=== PATIENT | male | born 1970 | race Caucasian/White ===

== ENCOUNTER 2021-04-05 15:55 | Outpatient (REF) | payer OTHER, SELFPAY ==
[2021-04-07 00:46] LABS: COVID-19 RT-PCR UVMMC Result Negative (Negative)
== END 2021-04-05 15:56 | disposition home or self-care (01) ==
LOC: LBN 15:55
PROVIDERS: PCP Family Medicine; Visit Provider Physician Assistant
DX: Z20.822 Contact with and (suspected) exposure to COVID-19 (principal); J02.9 Acute pharyngitis, unspecified
CPT/HCPCS: U0003

== ENCOUNTER 2021-08-29 22:40 | Outpatient (REF) | payer OTHER, SELFPAY ==
[2021-08-29 20:54] LABS: Hemoglobin A1C 7.8 % (<5.7)
[2021-08-29 21:32] LABS: Calculated LDL 161 mg/dL (<100); Cholesterol 267 mg/dL (<200); HDL Cholesterol 51 mg/dL (40-60); Triglyceride 277 mg/dL (<150)
[2021-09-01 10:01] LABS: Hepatitis C Ab w Rflx HCV PCR Negative (Negative)
== END 2021-08-29 22:41 | disposition home or self-care (01) ==
LOC: NCHCN 22:40
PROVIDERS: PCP Family Medicine; Visit Provider Family Medicine
DX: Z00.00 Encounter for general adult medical examination without abnormal findings (principal); Z11.59 Encounter for screening for other viral diseases
CPT/HCPCS: 80061; 86803; 83036

== ENCOUNTER 2021-11-10 18:30 | Outpatient (REF) | payer OTHER, SELFPAY ==
[2021-11-10 20:02] LABS: Calculated LDL 121 mg/dL (<100); Cholesterol 204 mg/dL (<200); HDL Cholesterol 44 mg/dL (40-60); Triglyceride 198 mg/dL (<150)
[2021-11-10 20:31] LABS: FREE T4 1.09 ng/dL (0.76-1.46)
== END 2021-11-10 18:31 | disposition home or self-care (01) ==
LOC: NCHCN 18:30
PROVIDERS: PCP Family Medicine; Visit Provider Family Medicine
DX: E78.5 Hyperlipidemia, unspecified (principal); R53.83 Other fatigue
CPT/HCPCS: 80061; 82565; 84439; 84443

== ENCOUNTER 2022-05-13 15:44 | Outpatient (REF) | payer OTHER, SELFPAY ==
[2022-05-13 19:36] LABS: HCT 38.9 % (40.0-50.0); HGB 13.4 g/dL (13.5-17.5)
[2022-05-13 20:14] LABS: TSH (W/Ref FT4) 2.59 uIU/mL (0.36-3.74); Vitamin B12 456 pg/mL (193-986)
== END 2022-05-13 15:45 | disposition home or self-care (01) ==
LOC: NCHCN 15:44
PROVIDERS: PCP Family Medicine; Visit Provider Family Medicine
DX: R94.6 Abnormal results of thyroid function studies (principal); F32.9 Major depressive disorder, single episode, unspecified
CPT/HCPCS: 82607; 84443; 85014; 85018

== ENCOUNTER 2022-06-10 17:25 | Outpatient (REF) | payer OTHER, SELFPAY ==
[2022-06-10 19:47] LABS: HCT 38.3 % (40.0-50.0); HGB 13.4 g/dL (13.5-17.5); MCH 31.6 pg (27.0-33.0); MCV 90 fL (80-95); MPV 11.2 fL (8.0-11.0); Platelet Count 222 10^3/uL (130-400); RBC 4.24 10^6/uL (4.36-5.78); RDW 11.8 % (11.8-14.1)
[2022-06-10 20:03] LABS: Iron 73 ug/dL (65-175); Total Iron Binding Capacity 259 ug/dL (250-450); Transferrin Sat 28 % (20-55)
[2022-06-15 12:53] LABS: IgA 297 mg/dL (85-499); Interpretation (See Note); Tissue Transglutaminase IgA <1.2 U/mL (<4.0)
== END 2022-06-10 17:26 | disposition home or self-care (01) ==
LOC: NCHCN 17:25
PROVIDERS: PCP Family Medicine; Visit Provider Family Medicine
DX: D64.9 Anemia, unspecified (principal)
CPT/HCPCS: 82784; 83516; 85027; 83540; 83550

== ENCOUNTER 2022-12-21 18:20 | Outpatient (REF) | payer OTHER, SELFPAY ==
[2022-12-21 15:00] LABS: HCT 40.5 % (40.0-50.0); MCH 31.3 pg (27.0-33.0); MCHC 34.6 % (32.0-36.0); MCV 90 fL (80-95); MPV 11.3 fL (8.0-11.0); Platelet Count 237 10^3/uL (130-400); RBC 4.48 10^6/uL (4.36-5.78); RDW 11.8 % (11.8-14.1); RDW-SD 38.7 fL
[2022-12-21 15:55] LABS: Ferritin 138 ng/mL (26-388); Folate 13.1 ng/mL (8.6-20.0)
[2022-12-21 16:05] LABS: Hemoglobin A1C 5.7 % (<5.7)
== END 2022-12-21 18:21 | disposition home or self-care (01) ==
LOC: NCHCN 18:20
PROVIDERS: PCP Family Medicine; Visit Provider Family Medicine
DX: D64.9 Anemia, unspecified (principal); R73.03 Prediabetes
CPT/HCPCS: 85027; 82728; 82746; 83036; 85045

== ENCOUNTER 2023-12-06 18:06 | Outpatient (REF) | payer OTHER, SELFPAY ==
[2023-12-06 16:01] LABS: Abs Immature Grans 0.01 10^3/uL (0.0-0.06); Absolute Basophil Count 0.05 10^3/uL (0.0-0.2); Absolute Eosinophil Count 0.11 10^3/uL (0.0-0.7); Absolute Lymphocyte Count 1.57 10^3/uL (1.2-3.4); Absolute Monocyte Count 0.39 10^3/uL (0.1-0.8); Eosinophils % 2.1; HCT 44.9 % (40.0-50.0); HGB 15.2 g/dL (13.5-17.5); Immature Grans % 0.2; MCH 30.7 pg (27.0-33.0); MCHC 33.9 % (32.0-36.0); MCV 91 fL (80-95); MPV 10.7 fL (8.0-11.0); Monocytes % 7.5; Neutrophils % 59.2; Platelet Count 247 10^3/uL (130-400); RBC 4.95 10^6/uL (4.36-5.78); RDW 11.9 % (11.8-14.1); RDW-SD 39.8 fL; WBC 5.23 10^3/uL (4.4-10.8)
[2023-12-06 16:21] LABS: Ferritin 83 ng/mL (26-388)
[2023-12-06 16:52] LABS: Iron 79 ug/dL (65-175)
[2023-12-06 17:25] LABS: Vitamin D 25 Total 32.2 ng/mL (30-100)
== END 2023-12-06 18:07 | disposition home or self-care (01) ==
LOC: NCHCN 18:06
PROVIDERS: PCP Family Medicine; Visit Provider Student in an Organized Health Care Education/Training Program
DX: Z86.2 Personal history of diseases of the blood and blood-forming organs and certain disorders involving the immune mechanism (principal); E55.9 Vitamin D deficiency, unspecified
CPT/HCPCS: 82306; 82728; 83540; 85025

== ENCOUNTER 2024-04-14 14:41 | Outpatient (REF) | payer OTHER, SELFPAY ==
[2024-04-14 15:53] LABS: Abs Immature Grans 0.01 10^3/uL (0.0-0.06); Absolute Basophil Count 0.03 10^3/uL (0.0-0.2); Absolute Eosinophil Count 0.16 10^3/uL (0.0-0.7); Absolute Lymphocyte Count 1.46 10^3/uL (1.2-3.4); Absolute Monocyte Count 0.33 10^3/uL (0.1-0.8); Absolute Neutrophil Count 2.44 10^3/uL (1.2-6.7); Basophils % 0.7 %; Eosinophils % 3.6 %; HGB 15.3 g/dL (13.5-17.5); Immature Grans % 0.2 %; MCH 31.1 pg (27.0-33.0); MCHC 34.8 % (32.0-36.0); MCV 89 fL (80-95); Monocytes % 7.4 %; Neutrophils % 55.1 %; Platelet Count 221 10^3/uL (130-400); RBC 4.92 10^6/uL (4.36-5.78); RDW 11.8 % (11.8-14.1); RDW-SD 38.4 fL; WBC 4.43 10^3/uL (4.4-10.8)
[2024-04-14 16:18] LABS: Anion Gap 4.7 mmol/L (3-11); BUN 19 mg/dL (7-18); CO2 30.3 mmol/L (21.0-32.0); CREATININE 1.1 mg/dL (0.70-1.30); Calcium 9.2 mg/dL (8.5-10.1); Chloride 105 mmol/L (98-107); Estimated GFR 79.28 (mL/min/1.73m2); FREE T4 0.98 ng/dL (0.76-1.46); Glucose 84 mg/dL (74-106); Potassium 5.1 mmol/L (3.5-5.1); Sodium 140 mmol/L (136-145); TSH 1.63 uIU/Ml (0.36-3.74)
== END 2024-04-14 14:42 | disposition home or self-care (01) ==
LOC: NCHCN 14:41
PROVIDERS: PCP Family Medicine; Visit Provider Student in an Organized Health Care Education/Training Program
DX: E55.9 Vitamin D deficiency, unspecified (principal)
CPT/HCPCS: 80048; 82306; 84439; 84443; 85025

== ENCOUNTER 2024-10-11 10:55 | Emergency (ER) | payer OTHER, SELFPAY ==
[2024-10-11 11:05] VITALS: BP 154/98; PULSE 67; RESP 98; TEMP 36.7; O2SAT 98
[2024-10-11] MEDS: Cyclobenzaprine 10 MG TAB PO (11:33)
[2024-10-11] MEDS: Lidocaine 5% Patch 1 PATCH TP (11:33)
[2024-10-11] MEDS: Acetaminophen 500 MG TAB 1000 MG PO (12:17)
--- NOTE | 2024-10-11 12:41 | ED.GENADUL_ITS ---
Discharge Plan Disposition Patient Disposition: Home Condition: Good Discharge Details Clinical Impression: Muscle spasms of neck Primary Care Provider: Andres Shore ED Provider: Tyler Caputo Home Meds and New Rx's Prescriptions: New cyclobenzaprine 10 mg tablet 10 mg PO TID Qty: 14 0RF lidocaine [Lidoderm] 5 % adhesive patch,medicated 1 patch Topical Q24H Qty: 15 0RF No Action citalopram [Celexa] 10 mg tablet 10 mg PO DAILY Discharge Instructions Instructions: Muscle Spasm ED Additional Instructions: At this time your signs and symptoms are clinically consistent with a muscular neck sprain. This can cause significant pain and take a fair bit of time to heal. Perform easy gentle regular activities at home without any significant bending or lifting. You have been given a prescription for Lidoderm patch. If your insurance does not cover this you can get [id number] Lidoderm patches at 4% which are almost just as effective. Please take the Flexeril as directed but do not take it when driving or operating any vehicles or heavy machinery, swimming, taking long baths, or operating firearms. Please use a heating pad as often as possible on your back. Perform daily gentle stretches on your back. Please continue to take the Tylenol and Motrin. You can take 1000 mg of Tylenol every 6 hours and 600 mg of ibuprofen every 6 hours. If you notice any worsening of your symptoms, or any new symptoms such as vomiting, diarrhea, fever, chills, shortness of breath, chest pain, numbness or tingling in your groin or legs, weakness in your legs, loss of control for your bowels or bladder, or fainting , please return immediately to the emergency department for reevaluation. Please follow up with your primary care provider as soon as possible for reassessment and reevaluation. As always, it was a pleasure participating in your medical care today. Referrals: Andres Shore [Primary Care Provider] - Discharge Data Discharge Date/Time-TO BE ENTERED AT DEPARTURE: 10/11/24 12:54 HPI General Date/Time Provider Initiated Documentation: 10/11/24 11:02 . HPI Narrative: This is a pleasant 54-year-old male who presents today for evaluation of neck spasm. Patient states that throughout his life he has often had notable muscle spasms in his neck, these often go away with time, they were usually pre tty manageable, however today he has had an extreme episode which is worse than its ever been before. He states that over the last day or so he is down a notable amount of shuffling. When he woke up this morning he noticed that his neck was notably stiff and tight. It then began to lock in and he has been unable to significantly move his neck to the left right forward or backwards because of the spasm. He did take some NSAID therapy without significant improvement. He denies numbness or tingling. He denies headache. He denies fever or chills. He denies any vomiting or diarrhea. No trauma. No other complaints at this time. Related Data Home Medications ?Medication ?Instructions ?Recorded ?Confirmed citalopram 10 mg tablet (Celexa) 10 mg PO DAILY 10/11/24 10/11/24 cyclobenzaprine 10 mg tablet 10 mg PO TID #14 tabs 10/11/24 lidocaine 5 % topical patch 1 patch topical Q24H #15 ea 10/11/24 (Lidoderm) Previous Rx's ?Medication ?Instructions ?Recorded cyclobenzaprine 10 mg tablet 10 mg PO TID #14 tabs 10/11/24 lidocaine 5 % topical patch 1 patch topical Q24H #15 ea 10/11/24 (Lidoderm) Allergies Allergy/AdvReac Type Severity Reaction Status Date / Time No Known Allergies Allergy Verified 10/11/24 11:09 General Stated Complaint: Nk/Back Pain KHALIF: 3 Exam Narrative Exam Narrative: 1.Const: Well-nourished, Well-developed, appearing stated age 2.Eyes: PERRL, no conjunctival injection, and symmetrical lids. 3.ENT: Atraumatic external nose and ears. Moist MM. Neck: Symmetric, trachea midline, No thyromegaly. 4.CVS: +S1/S2, Peripheral pulses 2+ and equal in all extremities. Brisk capillary refill in all extremities. 5.RESP: Unlabored respiratory effort. Clear to auscultation bilaterally. No wheezes rales or rhonchi 6.GI: Soft, Nontender/Nondistended, No hepatosplenomegaly. No guarding or rebound. 7.MSK: Normocephalic/Atraumatic, Extremities w/o deformity or ttp No cyanosis or clubbing, Normal movement of all extremities. Patient does have notable spasm over the superior trapezius muscles as well as around the splenius muscles. No midline cervical thoracic or lumbar spine tenderness, no nuchal rigidity. No nuchal pain. 8.Skin: Warm, Dry. No rashes or lesions. 9.Neuro: extract wringer II-XII grossly intact. Sensation grossly intact, no focal neurologic deficits. 10.Psych: (AAO) x3. Appropriate mood and affect Course Vital Signs Vital signs: Vital Signs Temperature 36.7 C 10/11/24 11:05 Pulse 67 10/11/24 11:05 Respiratory Rate 98 H 10/11/24 11:05 Blood Pressure 154/98 H 10/11/24 11:05 Pulse Oximetry 98 10/11/24 11:05 Temperature 36.7 C 10/11/24 11:05 Temperature Source Tympanic 10/11/24 11:05 Pulse 67 10/11/24 11:05 Respiratory Rate 98 H 10/11/24 11:05 Blood Pressure 154/98 H 10/11/24 11:05 Pulse Oximetry 98 10/11/24 11:05 Oxygen Delivery Method Room Air 10/11/24 11:05 Oxygen Flow Rate 0 10/11/24 11:05 Pain Level 10 10/11/24 11:05 Medical Decision Making This is a pleasant 54-year-old male who presents today for evaluation of neck spasm. Patient states that throughout his life he has often had notable muscle spasms in his neck, these often go away with time, they were usually pretty manageable, however today he has had an extreme episode which is worse than its ever been before. He states that over the last day or so he is down a notable amount of shuffling. When he woke up this morning he noticed that his neck was notably stiff and tight. It then began to lock in and he has been unable to significantly move his neck to the left right forward or backwards because of the spasm. He did take some NSAID therapy without significant improvement. He denies numbness or tingling. He denies headache. He denies fever or chills. He denies any vomiting or diarrhea. No trauma. No other complaints at this time. Patient does have notable spasm over the superior trapezius muscles as well as around the splenius muscles. No midline cervical thoracic or lumbar spine tenderness, no nuchal rigidity. No nuchal pain. Patient has no fever or chills to suggest meningitis. No tearing or ripping sensation or electric sensation to suggest vertebral artery dissection. No neurologic deficits to suggest thoracic outlet syndrome. Suspect muscle spasm secondary to significant muscular use recently. Patient was given cyclobenzaprine and Lidoderm patch and reassess 30 minutes later, he had notable improvement of mobility and symptoms. He feels much better and feels comfortable going home. Symptoms appear consistent with musculoskeletal spasm. Will recommend continued NSAID therapy, cyclobenzaprine and Lidoderm patches. Discussed red flags for which to return. I have extensively reviewed the treatment plan and discharge instructions with the patient. I have addressed all patient concerns at this time. The patient was made aware of what symptoms to monitor for that would warrant a return to the emergency department. Discussed the plan with the patient, they demonstrate verbal understanding and agreement with our assessment and plan at this time. The documentation in this chart was dictated using [employer] dictation software. Please excuse any dictation errors. Quality:SDOH Health Related Social Needs: No Data to Display PFSH All Active Problems (Updated 10/11/24 @ 12:42 by Tyler Caputo DO) Muscle spasms of neck (Acute) Social History Smoking/Tobacco Use Status: Never Smoking risk assessment performed?: Yes Alcohol Intake: never Drug use: Occasionally Substance use type: marijuana Housing: house
--- NOTE | 2024-10-12 16:51 | NUR.NOTE ---
Access chart to fax a prior authorization to them from [facility]; lidocaine 5% patches . Nursing Note:
== END 2024-10-11 12:54 | disposition home or self-care (01) ==
PROVIDERS: Emergency Provider Student in an Organized Health Care Education/Training Program; PCP Family Medicine
DX: M54.2 Cervicalgia (principal); R11.0 Nausea; M62.838 Other muscle spasm
CPT/HCPCS: 99283

== ENCOUNTER 2024-12-06 12:48 | Outpatient (REF) | payer OTHER, SELFPAY ==
[2024-12-06 15:54] LABS: Calculated LDL 151 mg/dL (<100); Cholesterol 227 mg/dL (<200); HDL Cholesterol 60 mg/dL (>or=40); TSH 2.08 uIU/mL (0.36-3.74); Triglyceride 82 mg/dL (<150)
[2024-12-06 17:31] LABS: FREE T4 0.91 ng/dL (0.76-1.46)
== END 2024-12-06 12:49 | disposition home or self-care (01) ==
LOC: NCHCN 12:48
PROVIDERS: PCP Student in an Organized Health Care Education/Training Program; Visit Provider Student in an Organized Health Care Education/Training Program
DX: R53.83 Other fatigue (principal); Z13.220 Encounter for screening for lipoid disorders
CPT/HCPCS: 80061; 84439; 84443